=== PATIENT | male | born 1965 | race Caucasian/White ===

== ENCOUNTER → 2017-09-09 | Outpatient (CLI) | payer BC ==
[~2017-09-09] MED LIST: FLOMAX0.4 MG PO; NOHOMEMEDS; PERCOCET 5/31 TABLET PO; ZOFRAN ODT4 MG PO
== END | disposition home or self-care (01) ==
LOC: RES 09:23
DX: R94.2 Abnormal results of pulmonary function studies (principal)
CPT/HCPCS: 94070